=== PATIENT | female | born 1980 | race Caucasian/White ===

== ENCOUNTER 2024-02-25 16:30 | Inpatient (IN) | payer BC ==
[2024-02-25 10:03] VITALS: BMI 50.1
[2024-02-26] MEDS ORDERED: Heparin 5,000 UNITS/ML VIAL ONE (06:42)
[2024-02-26] MEDS ORDERED: Propofol 500 MG/50 ML VIAL ONE (06:55)
[2024-02-26] MEDS ORDERED: fentaNYL PF 100 MCG/2 ML SYRINGE ONE ×4 (06:59→09:51)
[2024-02-26] MEDS ORDERED: PROPOFOL 0 ML ONE (07:01)
[2024-02-26] MEDS ORDERED: Lidocaine 1% PF 5 ML VIAL ONE (07:02)
[2024-02-26] MEDS ORDERED: Rocuronium Bromide 10 MG/ML (10ML VIAL) ONE ×2 (07:02→08:09)
[2024-02-26] MEDS ORDERED: EPINEPHrine 1 MG/ML VIAL ONE (07:06)
[2024-02-26] MEDS ORDERED: Bupivacaine 0.25% HCL 30 ML VIAL ONE (07:06)
[2024-02-26] MEDS ORDERED: Sodium Chloride 0.9% 100 ML ONE (07:26)
[2024-02-26] MEDS ORDERED: CEFAZOLIN 2 GM VIAL ONE (07:26)
[2024-02-26] MEDS ORDERED: Dexamethasone 20 MG/5 ML VIAL ONE (07:52)
[2024-02-26] MEDS ORDERED: Glycopyrrolate 0.2 MG/ML 5 ML SYRINGE ONE (07:52)
[2024-02-26] MEDS ORDERED: ePHEDrine Sulfate 50 MG/10 ML VIAL ONE (07:56)
[2024-02-26] MEDS ORDERED: PHENYLEPHRINE-NS 100 MCG/ML 10 ML SYRINGE ONE (08:09)
[2024-02-26] MEDS ORDERED: Dexmedetomidine 200 MCG/2 ML VIAL ONE (08:16)
[2024-02-26] MEDS ORDERED: Ondansetron HCl/PF 4 MG/2 ML Vial IVP PRN (08:19)
[2024-02-26] MEDS ORDERED: Promethazine HCl 25 MG/ML VIAL IM PRN ×2 (08:19→12:37)
[2024-02-26] MEDS ORDERED: Ondansetron PF 4 MG/2 ML Vial ONE (08:39)
[2024-02-26] MEDS ORDERED: Ketorolac Tromethamine 30 MG (1 mL) VIAL ONE (08:39)
[2024-02-26] MEDS ORDERED: SUGAMMADEX SODIUM 200 MG/2 ML VIAL ONE (08:40)
[2024-02-26] MEDS ORDERED: PROPOFOL 20 ML ONE (08:46)
[2024-02-26] MEDS ORDERED: Promethazine HCl 25 MG/ML VIAL ONE (09:26)
[2024-02-26] MEDS ORDERED: D5 1/2 NS w/20 mEq KCL 1,000 ML ONE (09:39)
[2024-02-26] MEDS ORDERED: HYDROmorphone 0.5 MG/0.5 ML SYRINGE ONE ×2 (10:37→12:45)
[2024-02-26] MEDS ORDERED: hydrOXYzine 25 MG TAB PO PRN (12:37)
[2024-02-26] MEDS ORDERED: Dextrose 5% in Water 1,000 ML IV PRN (12:37)
[2024-02-26] MEDS ORDERED: hydrALAZINE 20 MG/ML VIAL SLOW IVP PRN (12:37)
[2024-02-26] MEDS ORDERED: traMADol HCl 50 MG TAB PO PRN (12:37)
[2024-02-26] MEDS ORDERED: Dextrose 50% Abboject 50 ML SYRINGE SLOW IVP PRN (12:37)
[2024-02-26] MEDS ORDERED: Ipratropium/Albuterol 3 ML NEB NEB PRN (12:37)
[2024-02-26] MEDS ORDERED: Glucagon 1 MG/ML KIT IM PRN (12:37)
[2024-02-26] MEDS ORDERED: fentaNYL 50 mcg/mL 1 mL Vial ONE (12:44)
[2024-02-26] MEDS ORDERED: ALPRAZOLAM 0.5 MG PO PRN (14:36)
[2024-02-26] MEDS: Ketorolac Tromethamine 30 MG (1 mL) VIAL IVP PRN (14:37)
[2024-02-26] MEDS: D5 1/2 NS w/20 mEq KCL 1,000 ML IV SCH (14:38)
[2024-02-26] MEDS: Acetaminophen 650 MG/20.3 ML UDCUP PO SCH (14:41)
[2024-02-26] MEDS: traMADol HCl 50 MG TAB PO PRN (15:34)
[2024-02-26] MEDS: diphenhydrAMINE 50 MG/ML VIAL IVP PRN (21:51)
[2024-02-26] MEDS: Carvedilol 3.125 MG TAB PO SCH (21:51)
[2024-02-27] MEDS: Enoxaparin 40 MG (0.4 mL) SYRINGE SC SCH (05:15)
[2024-02-27] MEDS: fentaNYL 50 mcg/mL 1 mL Vial SLOW IVP PRN (05:15)
[2024-02-27 05:50] LABS: #Basophils Less than 0.03 10x3/uL (0.0-0.2); #Eosinphils Less than 0.03 10x3/uL (0.0-0.7); %Basophils 0.2 % (0.0-1.0); %Lymphocytes 25.7 % (21.0-51.0); %Monocytes 4.8 % (0.0-10.0); %Neutrophils 68.9 % (42.0-75.0); Hematocrit 34.4 % (36.0-47.0); Hemoglobin 11.6 g/dL (12.0-16.0); Mean Corpuscular HGB CONC 33.7 g/dL (32.0-36.0); Mean Corpuscular Hemoglobin 29.7 pg (27.0-31.0); Mean Corpuscular Volume 88.2 fL (78.0-98.0); Mean Platelet Volume 10.5 fL (7.4-10.4); Platelet Count 180 10x3/uL (130-400)
[2024-02-27 06:07] LABS: Anion Gap 12 mmol/L (10-20); BUN (Urea Nitrogen) 10 mg/dL (7.0-18.7); Calc. Creatinine Clearance 228 mL/min (70-130); Calcium 8.3 mg/dL (7.8-10.44); Carbon Dioxide 21 mmol/L (22-29); Chloride 112 mmol/L (98-107); Estimated GFR 105; Glucose 88 mg/dL (70-105); Potassium 4.2 mmol/L (3.5-5.1); Sodium 141 mmol/L (136-145)
[2024-02-27] MEDS: Lisinopril 20 MG TAB PO SCH (08:00)
[2024-02-27] MEDS: Montelukast Sodium 10 mg Tablet PO SCH (08:00)
[2024-02-27 08:01] VITALS: BP 125/76
[2024-02-27] MEDS: Pantoprazole 40 MG VIAL IVP SCH (08:01)
[2024-02-27] MEDS: Hydrochlorothiazide 25 MG TAB PO SCH (08:01)
[2024-02-27] MEDS: Ondansetron PF 4 MG/2 ML Vial IVP PRN (08:07)
[2024-02-27 08:50] VITALS: TEMP 98
[2024-02-27] MEDS: Aripiprazole 10 MG TAB PO SCH (09:03)
[2024-02-27] MEDS: busPIRone HCl 10 MG TAB PO SCH (09:03)
[2024-02-28] MEDS ORDERED: Enoxaparin 40 MG (0.4 mL) SYRINGE SC SCH (09:00)
== END 2024-02-27 10:40 | disposition home or self-care (01) | DRG 621 ==
LOC: SURG A 02-26 05:54 → SURG B 02-26 14:16
PROVIDERS: ADMIT Surgery; ATTEND Surgery
PROC: 0DB64Z3 Excision of Stomach, Percutaneous Endoscopic Approach, Vertical (ICD-10-PCS; principal; 2024-02-26)
PROC: 8E0W4CZ Robotic Assisted Procedure of Trunk Region, Percutaneous Endoscopic Approach (ICD-10-PCS; 2024-02-26)
DX: E66.01 Morbid (severe) obesity due to excess calories (principal); Z88.8 Allergy status to other drugs, medicaments and biological substances; Z68.43 Body mass index [BMI] 50.0-59.9, adult; I10 Essential (primary) hypertension
CPT/HCPCS: 36415; 36416; 80048; 85025; 88307; J0171; J0665; J1100; J1170; J1200; J1644; J1650; J1885; J2405; J2470; J2550; J2704; J3010; J3480